=== PATIENT | female | born 1995 | race Caucasian/White ===

== ENCOUNTER 2024-12-15 13:08 | Emergency (ER) | payer OTHER ==
[~2024-12-15] VITALS: Ht 167.6 cm; Wt 99.6 kg
[2024-12-15 13:30] VITALS: BP 120/77; PULSE 76; RESP 18; TEMP 99; O2SAT 98
--- NOTE | 2024-12-15 14:03 | Physician Documentation ---
History of Present Illness ~ Chief Complaint: Urinary Symptoms Stated Complaint: KIDNEY PAIN Time Seen by MD: 13:42 OK to notify your PCP?: Yes Source: patient Mode of Arrival: POV Exam Limitations: no limitations HPI 29-year-old female presents for urinary symptoms for the past 2 days. She reports having bilateral flank pain as well as some bladder heaviness, pain with urination, increased urinary frequency and decreased urinary output. She says that she has had a bladder infection in the past but has been a couple of years but it seems to feel the same. She denies any history of kidney stones or blood in the urine. She denies . She denies any nausea, vomiting or fevers. She has a history of IBS and her bowel movements are typically diarrhea but this is normal for her. There has been no changes in her bowel movements or vaginal discharge abnormalities. She has not tried taking any medications [id number] for his symptoms. Medication Reconciliation Allergies: Coded Allergies: sulfamethoxazole (Verified Allergy, Intermediate, 12/15/24) "HIVES AND ACTING WIERD" trimethoprim (Verified Allergy, Intermediate, 12/15/24) "HIVES AND ACTING WIERD" Scheduled Phenazopyridine HCl (Pyridium), 1 TAB PO Q8H Review of Systems All Other Systems at this time: Reviewed and Negative Physical Exam Vital Signs: RN Vital Signs have been reviewed: Yes, Temperature: 99.0, Source: Oral, Heart Rate: 76, Respiratory Rate: 18, BP: 120/77, Pulse Oximetry: 98, Weight: 99.600 Pulse Oximetry Reflects: adequate oxygenation Physical Exam General: Alert, no distress. HEENT: No injection, moist mucous membranes. Neck: Full range of motion. Respiratory: No respiratory distress, equal chest rise and fall. Chest: No accessory muscle use. Cardiovascular: Regular rate and rhythm. Gastrointestinal: Nondistended. Nontender to palpation. Bowel sounds normal. Extremities: Normal range of motion, no deformity. Back: No CVA tenderness. Neurologic: Oriented x4. Psychiatric: Normal mood and affect. Skin: Normal color, warm and dry. Progress Results/Orders Reviewed/noted all lab results: Yes Results/Orders Orders - ALEJANDRA SANCHES MANAGER POLICY Chlam/Gc Amp Ur (12/15/24 14:27) Vital Signs 12/15/24 13:30 Temp 99.0 Pulse 76 Resp 18 B/P (MAP) 120/77 Pulse Ox 98 Laboratory Tests Test 12/15/24 14:05 Urine Specimen Description Cln catch midstream Urine Color Yellow Urine Clarity Clear Urine pH 6.0 Urine Specific [place] 1.025 Urine Protein Negative Urine Glucose (UA) Negative Urine Ketones Negative Urine Occult Blood Negative Urine Nitrite Negative Urine Bilirubin Negative Urine Urobilinogen 0.2 Urine Leukocyte Esterase Negative Urine Culture Indicated Not ind Volume Urine Centrifuged 10 ml Urine Comment Medical Decision Making Additional info obtained from: old records Findings 29-year-old female presenting with urinary symptoms for the past 2 days. She has a history of urinary tract infection couple of years ago states it feels the same. Her physical exam is unremarkable, she has no abdominal tenderness or CVA tenderness. Her urinalysis shows no infection or blood in urine. We discussed her symptoms further and she reports that the symptoms come and go where she has UTI like symptoms for couple of days at a time with normal urinalysis that typically goes away on its own. We discussed that this may be symptoms of interstitial cystitis although this would require symptoms for much longer and for her to follow up with the urologist for further testing. I have prescribed Pyridium for 3 days to help with her bladder pain. Another cause of her symptoms could be due to gonorrhea or chlamydia so we have sent her urine for culture for this. I discussed with the patient that we will notify her should this become positive. I have a low suspicion for this because she reports she has been in a monogamous marriage for the past 8 years. We discussed follow up instructions as well as return instructions. Urinary Diff Dx:Considerations: Include: PID, Pyelonephritis, Urinary Obstruction, Urolithiasis, Urinary retention, UTI, Vaginitis Additional Comment Urethritis, interstitial cystitis, Departure Disposition: HOME / SELF CARE / HOMELESS Impression: Primary Impression: Bladder pain Additional Impression: Dysuria Condition: Stable Discharge Instructions: Dysuria Additional Instructions: Please take the Pyridium as directed for the next 3 days. You can also take ibuprofen or naproxen for pain and inflammation relief. If symptoms persist, please follow up with her primary care provider in the next week as you may need a referral to Urology. Return back here for any new or worsening symptoms. Referrals: NO PRIMARY CARE PROVIDER (PCP) Prescriptions Phenazopyridine HCl (Pyridium) 200 Mg Tablet 1 TAB PO Q8H for urinary discomfort for 3 Days, #9 TAB 0 Refills Prov: ALEJANDRA SANCHES 12/15/24 Education Educated: Patient Educated regarding: diagnosis, treatment, prognosis, need for follow up Additional Comment Medical Screen Exam This patient recieved a medical screening examination. After reviewing the individual's medical complaints with presenting symptoms and performing an appropriate physical examination, it was determined that no immediate life- threatening emergency medical condition is present. This individual is also not a women having contractions. Signature Scribe Signature: . Attestation: Scribed for Alejandra Sanchesp by Alejandra Benavides NP . 12/15/24 17:47 Parts of this note were created using [employer] voice recognition software program. While efforts were made to correct any mistakes made by this voice recognition software program, nonsensical phrases may remain in this note. In addition, there may be errors and syntax, grammar, content and spelling. ALEJANDRA SANCHES Dec 15, 2024 14:03
[2024-12-15 14:16] LABS: LEUKOCYTE ESTERASE ,URINE NEGATIVE (Neg); NITRITES, URINE NEGATIVE (Neg); OCCULT BLOOD,URINE NEGATIVE (Neg); UA COLLECTION TYPE CLN CATCH MIDSTREAM
[2024-12-15] MEDS ORDERED: PHEN-716 PO (14:30)
== END 2024-12-15 15:00 | disposition home or self-care (01) ==
LOC: ER 13:10
DX: R30.9 Painful micturition, unspecified (principal); R30.0 Dysuria; Z88.1 Allergy status to other antibiotic agents; Z88.2 Allergy status to sulfonamides
CPT/HCPCS: 36415; 81003; 87491; 99283